=== PATIENT | male | born 1935 | race Caucasian/White ===

== ENCOUNTER → 2016-08-15 | Outpatient (CLI) | payer MEDICARE, BC ==
[~2016-08-15] MED LIST: AMLO10 PO; ASPI81TA82 PO; CALTTAB5 PO; CLOP75 PO; DOCU1CAP32 PO; DONE5TAB14 PO; EZET10 PO; FAMO40TA PO; GLUC750T22 PO; METO25 PO; MULT1TAB46 PO; OMEG5CAP PO
--- NOTE | 2016-08-18 11:23 | RSPPFT ---
DATE OF PROCEDURE: 08/15/16 COMMENTS: Spirometry shows FVC of 2.7 at 64% of predicted, FEV1 of 1.7 at 62%, FEV1/FVC ratio is decreased. Flow is decreased at FEF 25, FEF 50, FEF 75, FEF 25-75. There is no response after bronchodilator treatment. Lung volumes show residual volume is increased. TLC is normal. Diffusion capacity is decreased. Flow volume loop indicates an obstructive pattern. IMPRESSION: 1. Moderately severe obstructive lung disease. 2. No response after bronchodilator treatment. 3. Lung volumes show hyperinflation. 4. Mild decrease in diffusion capacity.
== END ==
LOC: HRSP 10:29
PROVIDERS: ATTEND Internal Medicine Cardiovascular Disease
DX: R06.02 Shortness of breath (principal)
CPT/HCPCS: 94060; 94726; 94729

== ENCOUNTER 2018-08-02 17:19 | Inpatient (IN) ==
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
[2018-08-02 18:23] LABS: Baso # (Auto) 0.1 th/mm3 (0.0-0.2); Baso % (Auto) 0.8 % (0.0-2.0); Eos # (Auto) 0.3 th/mm3 (0.0-0.4); Eos % (Auto) 4.7 % (0.0-4.0); Hematocrit 43.1 % (39.0-51.0); Hemoglobin 14.9 gm/dL (13.0-17.0); Lymph # (Auto) 2.2 th/mm3 (1.0-4.8); Lymph % (Auto) 30.2 % (9.0-44.0); Mean Corpuscular HGB Conc 34.5 % (32.0-36.0); Mean Corpuscular Hemoglobin 32.4 pg (27.0-34.0); Mean Corpuscular Volume 93.7 fL (80.0-100.0); Mean Platelet Volume 8.3 fL (7.0-11.0); Mono # (Auto) 0.9 th/mm3 (0.0-0.9); Mono % (Auto) 12.5 % (0.0-8.0); Neut # (Auto) 3.8 th/mm3 (1.8-7.7); Neut % (Auto) 51.8 % (16.0-70.0); Platelet Count 185 th/mm3 (150-450); Red Cell Distribution Width 12.8 % (11.6-17.2); White Blood Count 7.3 th/mm3 (4.0-11.0)
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
[2018-08-02 18:32] LABS: Activated Partial Thrombo Time 25.2 sec (23.4-31.7); Prothrombin Time 10.4 sec (9.8-11.6)
[2018-08-02 18:49] LABS: Calcium 9.4 mg/dL (8.5-10.1); Potassium 3.9 meq/L (3.5-5.1)
[2018-08-02] MEDS ORDERED: Post-op Orders (for Pharmacy) OTHER ONE (19:17)
[2018-08-02] MEDS ORDERED: Naloxone Inj 0.4 MG/ML Vial IV.PUSH PRN (19:17)
[2018-08-02] MEDS ORDERED: Bisacodyl 10 MG Supp RECTAL PRN (19:17)
[2018-08-02] MEDS ORDERED: Acetaminophen 325 MG Tablet PO PRN (19:17)
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
[2018-08-02] MEDS: Sod Chloride 0.9% Inj 1,000 ML IV.CONT SCH (20:54)
[2018-08-02] MEDS: Senna/Docusate Sodium 8.6/50 MG Tablet PO SCH (21:17)
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
[2018-08-02] MEDS: levETIRAcetam 500 MG Tablet PO SCH (23:08)
[2018-08-03 04:07] LABS: Baso % (Auto) 0.4 % (0.0-2.0); Eos # (Auto) 0.4 th/mm3 (0.0-0.4); Eos % (Auto) 5.8 % (0.0-4.0); Hematocrit 42.5 % (39.0-51.0); Hemoglobin 14.5 gm/dL (13.0-17.0); Lymph # (Auto) 2.4 th/mm3 (1.0-4.8); Lymph % (Auto) 34.7 % (9.0-44.0); Mean Corpuscular HGB Conc 34.2 % (32.0-36.0); Mean Corpuscular Volume 93.7 fL (80.0-100.0); Mean Platelet Volume 8.2 fL (7.0-11.0); Mono # (Auto) 0.9 th/mm3 (0.0-0.9); Mono % (Auto) 13.5 % (0.0-8.0); Neut # (Auto) 3.2 th/mm3 (1.8-7.7); Neut % (Auto) 45.6 % (16.0-70.0); Platelet Count 167 th/mm3 (150-450); Red Blood Count 4.54 mil/mm3 (4.50-5.90)
[2018-08-03 04:28] LABS: Calcium 8.9 mg/dL (8.5-10.1); Carbon Dioxide 29.1 meq/L (21.0-32.0); Potassium 3.8 meq/L (3.5-5.1)
[2018-08-03] MEDS: Sod Chloride 0.9% Inj 1,000 ML IV.CONT SCH (06:01)
[2018-08-03] MEDS: levETIRAcetam 500 MG Tablet PO SCH ×2 (09:07→21:42)
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
[2018-08-03] MEDS: Senna/Docusate Sodium 8.6/50 MG Tablet PO SCH ×2 (13:28→21:41)
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
[2018-08-03] MEDS: Gabapentin 300 MG Capsule PO SCH ×2 (14:58→21:41)
[2018-08-03] MEDS: oxyCODONE/Acetaminophen 10/325 Tablet PO PRN (14:58)
--- NOTE | 2018-08-03 15:30 | OTSOAPIP ---
TIME SESSION COMPLETED: IN PM TREATMENT TIME: 0 MINS. CHART REVIEWED. RECEIVED ORDER FOR OT HOWEVER RECEIVING ONGOING MEDICAL WORK UP AND AWAITING NEUROSURGERY CONSULT. WILL FOLLOW NEXT DAY. Therapist: Tara Hobbs Signature on file
[2018-08-03] MEDS ORDERED: levETIRAcetam 500 MG Tablet PO SCH (21:00)
[2018-08-04] MEDS: Gabapentin 300 MG Capsule PO SCH ×2 (02:07→08:38)
[2018-08-04] MEDS: oxyCODONE/Acetaminophen 10/325 Tablet PO PRN ×2 (04:51→12:11)
[2018-08-04] MEDS: Senna/Docusate Sodium 8.6/50 MG Tablet PO SCH (08:38)
[2018-08-04] MEDS: levETIRAcetam 500 MG Tablet PO SCH (08:38)
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
[2018-08-04 12:16] VITALS: BP 159/72; PULSE 72; RESP 17; TEMP 98.9; O2SAT 93
--- NOTE | 2018-08-04 13:43 | P.PNNS ---
Subjective Interval history: 08/04. Dioing very well. He wants to go home Physical Exam Vital signs: Vital Signs 08/03/18 14:00 08/03/18 14:01 08/03/18 15:00 Temperature Pulse Rate 62 64 65 Respiratory Rate 22 25 H 23 Blood Pressure 159/75 H Pulse Oximetry 93 L 93 L 08/03/18 16:00 08/03/18 17:00 08/03/18 19:56 Temperature 99 F 97.5 F L 98.2 F Pulse Rate 62 62 60 Respiratory Rate 19 18 18 Blood Pressure 156/57 H 134/66 144/67 H Pulse Oximetry 95 95 08/03/18 20:00 08/04/18 00:50 08/04/18 03:52 Temperature 98.1 F 98.1 F Pulse Rate 60 64 Respiratory Rate 20 18 Blood Pressure 153/72 H 148/74 H Pulse Oximetry 95 95 95 08/04/18 07:36 08/04/18 09:31 08/04/18 11:45 Temperature 98.7 F 98.9 F Pulse Rate 69 72 Respiratory Rate 16 17 Blood Pressure 147/67 H 159/72 H Pulse Oximetry 92 L 92 L 93 L Intake & Output 08/03/18 08/04/18 08/04/18 18:59 06:59 18:59 Weight 79.379 kg 81.8 kg Other: # Voids 3 Date of Last Bowel Movement 08/02/18 08/03/18 08/03/18 Narrative: Mr Albarran is alert, awake. Comfortable, in no acute distress. Speech is fluent. GCS 15 Cranial nerve examination: pupils to be equal, round and reactive to light. Extra-ocular movements are intact. Facial motor and sensory function are normal and symmetrical. Gross hearing appears mildy decreased. Sternocleidomastoid and trapezius muscles are symmetrical. Other cranial nerves are intact. Neck is soft and supple with a good range of motion without pain. Muscle strength is normal in all muscle groups of both upper and lower extremities. Sensory examination is intact to light touch and pin prick in both the upper and lower extremities. Deep tendon reflexes are symmetrical in both upper and lower extremities. There is a bilateral plantar flexion response. Cerebellar examination is unremarkable, without deficits. Lungs are clear Heart regular rhythm is regular rate Skin warm and dry Assessment and Plan - Plan 82 yo male with traumatic brain injury I again reviewed his follow up CT brain Neuro: neuro checks remain stable. His follow up CT brain was stable. Cleared per neurosurgical standpoint to be discharged home Protonix for stress ulcer prophylaxis Discussed with trauma team
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
== END 2018-08-04 14:59 | disposition home or self-care (01) | DRG 84 ==
LOC: NEPC 17:19 → NEDA 18:03 → N03 20:32 → N05 08-03 16:36
PROVIDERS: ADMIT Surgery; ATTEND Surgery
CPT/HCPCS: 70450; 71010; 71045; 73030; 80048; 82948; 82962; 85025; 85610; 85730; 87641; 94150; 97166; 99285; J7030